=== PATIENT | female | born 1940 ===

== ENCOUNTER 2018-01-10 21:53 | Inpatient (IN) | payer OTHER ==
[~2018-01-10] VITALS: Ht 157.5 cm; Wt 5.0 kg
[~2018-01-10 21:53] MED LIST: FOSAMAX5 MG PO; GLYBURIDE1.25 MG PO; SANDOSTATIN30 MG/KIT IM; TOPROL XL50 M1 PO
[2018-01-10] MEDS ORDERED: XARELTO15 MG (22:12)
[2018-01-12] MEDS ORDERED: FENTANYL1 EAC3 TD (13:16)
[2018-01-12] MEDS ORDERED: PROBIOTIC & AC1 EACH PO (13:16)
[2018-01-12] MEDS ORDERED: LEVAQUIN500 MG PO (13:16)
[2018-01-12] MEDS ORDERED: PROTONIX40 MG PO (13:16)
[2018-01-12] MEDS ORDERED: TOPROL XL50 M1 PO (13:16)
== END 2018-01-12 17:41 | disposition other institution (70) | DRG 378 ==
LOC: ER 21:53 → SURG 01-11 19:26
DX: K92.2 Gastrointestinal hemorrhage, unspecified (principal); R18.8 Other ascites; C78.5 Secondary malignant neoplasm of large intestine and rectum; C78.7 Secondary malignant neoplasm of liver and intrahepatic bile duct; C78.02 Secondary malignant neoplasm of left lung; C78.01 Secondary malignant neoplasm of right lung; C18.9 Malignant neoplasm of colon, unspecified; R31.0 Gross hematuria; T45.515A Adverse effect of anticoagulants, initial encounter; Y92.098 Other place in other non-institutional residence as the place of occurrence of the external cause; R55 Syncope and collapse; E11.9 Type 2 diabetes mellitus without complications; I11.9 Hypertensive heart disease without heart failure; K74.69 Other cirrhosis of liver; N20.0 Calculus of kidney